=== PATIENT | female | born 1950 | race Caucasian/White ===

== ENCOUNTER 2022-02-15 08:59 | Day surgery (SDC) | payer MEDICARE, BC ==
[~2022-02-15] VITALS: Ht 152.4 cm; Wt 77.3 kg
[~2022-02-15 08:59] MED LIST: ESOM40CA49 PO; LOSA50TA3 PO; ORPH100T2 PO
[2022-02-15] MEDS ORDERED: LOSA50TA3 PO (09:12)
[2022-02-15] MEDS ORDERED: TRAM50TA2 PO (09:13)
[2022-02-15 09:15] VITALS: BP 145/73
[2022-02-15] MEDS ORDERED: fentaNYL/PF 50MCG/1 ML 2ML syringe ONE (09:21)
[2022-02-15] MEDS ORDERED: MIDAZolam 1 MG/ML 5ML VIAL ONE (09:22)
[2022-02-15 10:32] VITALS: BP 127/73
[2022-02-15 10:42] VITALS: BP 117/67
[2022-02-15 10:52] VITALS: BP 120/63
[2022-02-15 11:02] VITALS: BP 106/58
== END 2022-02-15 11:05 | disposition home or self-care (01) ==
LOC: GI LAB 08:59
PROVIDERS: ATTEND Internal Medicine Gastroenterology
DX: R10.31 Right lower quadrant pain (principal); K58.9 Irritable bowel syndrome, unspecified; Z79.899 Other long term (current) drug therapy
CPT/HCPCS: 45378; G0500; J2250; J3010; J7030; Z7512; 99152; A4620